=== PATIENT | male | born 1965 | race Caucasian/White ===

== ENCOUNTER 2019-09-24 09:35 | Inpatient (IN) ==
[2019-09-24] MEDS ORDERED: Aspirin 81 MG TAB.CHEW PO ONE (09:52)
[2019-09-24 10:15] LABS: Basophils % 0.2 %; Eosinophils # 0.2 K/mcL (0.0-0.6); Eosinophils % 1.1 %; Hematocrit 44.3 % (37.5-50.1); Hemoglobin 15.4 g/dL (12.9-16.9); Immature Granulocytes % 0.4 % (0-4); Lymphocytes # 1.2 K/mcL (0.6-4.6); Lymphocytes % 8.9 %; Mean Corpuscular HGB Conc 34.8 g/dL (31.6-35.5); Mean Corpuscular Hemoglobin 29.7 pg (28.0-33.3); Mean Corpuscular Volume 85.5 fL (83.0-100.0); Mean Platelet Volume 9.9 fL (9.4-12.4); Monocytes % 7.4 %; Platelet Count 280 K/mcL (140-400); Red Blood Count 5.18 M/mcL (4.19-5.50); Red Cell Distribution Width 13.2 % (11.5-14.5); White Blood Count 13.5 K/mcL (4.3-11.1)
[2019-09-24 10:20] LABS: INR 1.1; Prothrombin Time 12.2 Seconds (9.4-12.1)
[2019-09-24 10:36] LABS: Albumin 4.1 g/dL (3.5-5.7); Albumin/Globulin Ratio 1.5 (1.1-2.2); Bilirubin,Direct 0.2 mg/dL (0.0-0.2); Bilirubin,Indirect 0.7 mg/dL (0.0-1.0); Bilirubin,Total 0.9 mg/dL (0.3-1.0); Globulin 2.8 g/dL (2.4-3.5); Total Protein 6.9 g/dL (6.4-8.9)
[2019-09-24 10:44] LABS: Potassium 3.3 mEq/L (3.5-5.1); Troponin I 20.92 ng/mL (< 0.04)
[2019-09-24] MEDS ORDERED: *HR* Heparin 5,000 UNIT/ML VIAL IVP PRN ×3 (10:56→12:47)
[2019-09-24] MEDS ORDERED: *HR* Heparin 5,000 UNIT/ML VIAL IVP ONE ×2 (10:56→12:47)
[2019-09-24] MEDS ORDERED: Heparin 25,000 UNIT/250 ML D5W 25,000 UNIT/250 ML IV.SOLN IVC SCH (11:00)
[2019-09-24] MEDS ORDERED: Isovue-370 500 ML BOTTLE IVP ONE (11:20)
[2019-09-24 12:03] LABS: D-Dimer < 215 ng/mLFEU (0-500)
[2019-09-24] MEDS ORDERED: Perflutren Lipid Microsphere 1.3 ML in 0.9 % Sodium Chloride 8.7 ML IVP ONE (12:07)
[2019-09-24] MEDS ORDERED: Naloxone 0.4 MG/ML INJ IVP PRN (12:55)
[2019-09-24] MEDS: Heparin 25,000 UNIT/250 ML D5W 25,000 UNIT/250 ML IV.SOLN IVC SCH ×2 (13:47→18:00)
[2019-09-24] MEDS ORDERED: 0.9 % Sodium Chloride 1,000 ML IV ONE (13:49)
[2019-09-24] MEDS ORDERED: 0.9 % Sodium Chloride 2,000 ML ONE (14:29)
[2019-09-24] MEDS ORDERED: ISOVUE-370 200 ML INFUS..BTL ONE (14:30)
[2019-09-24] MEDS ORDERED: Heparin 1,000 UNITS/500 mL 500 ML ONE (14:30)
[2019-09-24] MEDS ORDERED: *HR* Heparin 10,000 UNIT/10 ML VIAL ONE ×2 (14:30→15:20)
[2019-09-24] MEDS ORDERED: Nitroglycerin 1,000 MCG/10 ML VIAL IV ONE (14:30)
[2019-09-24] MEDS ORDERED: 0.9 % Sodium Chloride 250 ML ONE (14:34)
[2019-09-24] MEDS ORDERED: *HR* Midazolam HCl 2 MG/2 ML VIAL ONE ×2 (14:39→15:17)
[2019-09-24] MEDS ORDERED: 0.9 % Sodium Chloride 250 ML IV ONE (14:39)
[2019-09-24] MEDS ORDERED: *HR* FentaNYL (PF) 100 MCG/2 ML VIAL ONE (14:39)
[2019-09-24] MEDS ORDERED: 0.9 % Sodium Chloride 250 ML IV SCH (14:45)
[2019-09-24] MEDS ORDERED: Verapamil 5 MG/2 ML VIAL ONE (14:47)
[2019-09-24] MEDS ORDERED: 0.9 % Sodium Chloride 1,000 ML IVC SCH (15:15)
[2019-09-24] MEDS: 0.9 % Sodium Chloride 1,000 ML IVC SCH (16:40)
[2019-09-24] MEDS: carvediloL 6.25 MG TABLET PO SCH (16:57)
[2019-09-24] MEDS ORDERED: Ondansetron 4 MG/2 ML VIAL IVP PRN (17:53)
[2019-09-24] MEDS: CeFAZolin Syr 3,000MG/30 ML 3,000 MG/30 ML SYRINGE IVPB ONE (18:49)
[2019-09-25] MEDS: 0.9 % Sodium Chloride 1,000 ML IVC SCH ×2 (01:00→15:27)
[2019-09-25 01:01] LABS: Basophils % 0.1 %; Eosinophils % 0.1 %; Hemoglobin 14.7 g/dL (12.9-16.9); Immature Granulocytes % 0.3 % (0-4); Immature Platelets 2.7 % (1.1-6.1); Lymphocytes # 1.6 K/mcL (0.6-4.6); Lymphocytes % 10.8 %; Mean Corpuscular HGB Conc 32.7 g/dL (31.6-35.5); Mean Corpuscular Hemoglobin 29.8 pg (28.0-33.3); Mean Corpuscular Volume 91.1 fL (83.0-100.0); Mean Platelet Volume 10.3 fL (9.4-12.4); Monocytes # 1.1 K/mcL (0.0-1.3); Monocytes % 7.3 %; Neutrophils # 11.7 K/mcL (1.6-8.9); Platelet Count 261 K/mcL (140-400); Red Blood Count 4.94 M/mcL (4.19-5.50); Red Cell Distribution Width 13.5 % (11.5-14.5); Segmented Neutrophils % 81.4 %; White Blood Count 14.4 K/mcL (4.3-11.1)
[2019-09-25 02:48] LABS: Calcium 8.8 mg/dL (8.6-10.3); Chol/HDL Ratio 2.8 (0-4.9); Potassium 3.6 mEq/L (3.5-5.1)
[2019-09-25 04:49] LABS: Bilirubin,Urine Negative (Negative); Blood,Urine Negative (Negative); Clarity,Urine Clear (Clear); Color,Urine Yellow (Yellow); Glucose,Urine (UA) Normal (Normal); Ketones,Urine Negative (Negative); Leukocyte Esterase,Urine Negative (Negative); Nitrite,Urine Negative (Negative); Protein,Urine 30 mg/dL (Neg-Trace); Specific Gravity,Urine 1.014 (1.010-1.025); Urobilinogen,Urine Normal (Normal)
[2019-09-25 04:56] LABS: Protein/Creatinine Ratio,Urine 0.66 mg/mg (0.00-0.20)
[2019-09-25 05:05] LABS: RBC,Urine 0-3 per hpf (0-3)
[2019-09-25 05:06] LABS: Bacteria,Urine None Seen per hpf (None-Few); Squamous Epithelial Cell,Urine None Seen per lpf (None-Few); WBC,Urine 0-3 per hpf (0-3)
[2019-09-25] MEDS ORDERED: Heparin 15,000 UNIT in 0.9 % Sodium Chloride 500 ML IV ONE (06:00)
[2019-09-25] MEDS ORDERED: Dextrose 50 % in Water (Vial) 30 ML, Sodium Bicarbonate 20 MEQ, Potassium Chloride 15 M... TH ONE (06:00)
[2019-09-25] MEDS ORDERED: Norepinephrine 4 MG in 0.9 % Sodium Chloride 250 ML IVC PRN (06:00)
[2019-09-25] MEDS ORDERED: Insulin Human Regular 100 UNIT in 0.9 % Sodium Chloride 100 ML IV PRN (06:00)
[2019-09-25] MEDS ORDERED: Dextrose 50 % in Water (Vial) 30 ML, Sodium Bicarbonate 20 MEQ, Lidocaine 1% 5 ML, Insu... TH ONE ×3 (06:00)
[2019-09-25] MEDS ORDERED: NiCARdipine 2.5 MG/10 ML Syringe IVPB ONE (07:33)
[2019-09-25] MEDS ORDERED: *HR* Rocuronium Bromide 50 MG/5 ML VIAL ONE ×2 (07:39→13:04)
[2019-09-25] MEDS ORDERED: *HR* PHENYLEPHRINE 1,000 MCG/10 ML SYRINGE IVP ONE ×3 (07:39→13:35)
[2019-09-25] MEDS ORDERED: Tranexamic Acid 1,000 MG/10 ML VIAL ONE ×2 (07:40→11:28)
[2019-09-25] MEDS ORDERED: Calcium Gluconate 1,000 MG/10 ML VIAL ONE (07:40)
[2019-09-25] MEDS ORDERED: Famotidine 20 MG/2 ML VIAL ONE (07:40)
[2019-09-25] MEDS ORDERED: *HR* Etomidate 20 MG/10 ML AMPUL IVP ONE (07:40)
[2019-09-25] MEDS ORDERED: Protamine Sulfate 250 MG/25 ML VIAL IVP ONE (07:40)
[2019-09-25] MEDS ORDERED: *HR* FentaNYL (PF) 1,000 MCG/20 ML VIAL ONE (07:45)
[2019-09-25] MEDS ORDERED: *HR* Midazolam HCl 5 MG/5 ML VIAL IVP ONE (07:45)
[2019-09-25] MEDS ORDERED: Verapamil 5 MG/2 ML VIAL ONE (07:53)
[2019-09-25] MEDS: carvediloL 6.25 MG TABLET PO SCH (08:03)
[2019-09-25] MEDS ORDERED: Mannitol 25% vial 12.5 GM/50 ML VIAL IVP ONE (08:44)
[2019-09-25] MEDS ORDERED: Tranexamic Acid 1,000 MG/10 ML VIAL IVP ONE (08:44)
[2019-09-25] MEDS ORDERED: Lidocaine 2% Syringe 100 MG/5 ML IV ONE (08:44)
[2019-09-25] MEDS ORDERED: *HR* Magnesium Sulfate 2 GM/50 ML PIGGYBACK IVPB ONE (08:44)
[2019-09-25] MEDS ORDERED: Albumin Human 25% 25 GM/100 ML IV.SOLN IV ONE (08:44)
[2019-09-25] MEDS ORDERED: *HR* Phenylephrine 10 MG/ML VIAL IVC ONE (08:44)
[2019-09-25] MEDS ORDERED: *HR* Heparin 10,000 UNIT/10 ML VIAL IV ONE (08:44)
[2019-09-25] MEDS ORDERED: Aspirin Enteric Coated 81 MG Tablet PO SCH (09:00)
[2019-09-25 10:27] LABS: ABG Base Excess -1 mEq/L (-2 to 3); ABG Chloride 108 mEq/L (98-107); ABG Glucose 106 mg/dL (60-95); ABG HCO3 26 mEq/L (21-27); ABG Ionized Calcium 1.14 mmol/L (1.15-1.35); ABG Oxygen Saturation 93 % (95-98); ABG PCO2 52 mmHg (35-45); ABG PH 7.31 pH Units (7.32-7.45); ABG PO2 74 mmHg (85-104); ABG TCO2 28 mEq/L (20-26)
[2019-09-25] MEDS: CeFAZolin Syr 3,000MG/30 ML 3,000 MG/30 ML SYRINGE IVPB ONE (10:40)
[2019-09-25 11:31] LABS: ABG Base Excess -2 mEq/L (-2 to 3); ABG Chloride 109 mEq/L (98-107); ABG Glucose 113 mg/dL (60-95); ABG HCO3 24 mEq/L (21-27); ABG Ionized Calcium 1.07 mmol/L (1.15-1.35); ABG Oxygen Saturation 99 % (95-98); ABG PCO2 45 mmHg (35-45); ABG PH 7.34 pH Units (7.32-7.45); ABG PO2 172 mmHg (85-104); ABG TCO2 26 mEq/L (20-26)
[2019-09-25 12:02] LABS: ABG Base Excess 2 mEq/L (-2 to 3); ABG Chloride 102 mEq/L (98-107); ABG Glucose 181 mg/dL (60-95); ABG HCO3 27 mEq/L (21-27); ABG Ionized Calcium 0.94 mmol/L (1.15-1.35); ABG Oxygen Saturation 100 % (95-98); ABG PCO2 45 mmHg (35-45); ABG PH 7.39 pH Units (7.32-7.45); ABG PO2 559 mmHg (85-104); ABG TCO2 29 mEq/L (20-26)
[2019-09-25 12:42] LABS: ABG Base Excess 3 mEq/L (-2 to 3); ABG Chloride 103 mEq/L (98-107); ABG Glucose 164 mg/dL (60-95); ABG HCO3 28 mEq/L (21-27); ABG Oxygen Saturation 100 % (95-98); ABG PCO2 45 mmHg (35-45); ABG PO2 574 mmHg (85-104); ABG TCO2 29 mEq/L (20-26)
[2019-09-25 12:53] LABS: ABG Base Excess 2 mEq/L (-2 to 3); ABG Chloride 102 mEq/L (98-107); ABG Glucose 161 mg/dL (60-95); ABG HCO3 26 mEq/L (21-27); ABG Ionized Calcium 0.99 mmol/L (1.15-1.35); ABG Oxygen Saturation 100 % (95-98); ABG PCO2 41 mmHg (35-45); ABG PH 7.42 pH Units (7.32-7.45); ABG PO2 492 mmHg (85-104); ABG TCO2 28 mEq/L (20-26)
[2019-09-25 13:30] LABS: ABG Base Excess 0 mEq/L (-2 to 3); ABG Chloride 101 mEq/L (98-107); ABG Glucose 86 mg/dL (60-95); ABG HCO3 26 mEq/L (21-27); ABG Ionized Calcium 1.34 mmol/L (1.15-1.35); ABG Oxygen Saturation 100 % (95-98); ABG PCO2 48 mmHg (35-45); ABG PH 7.35 pH Units (7.32-7.45); ABG PO2 320 mmHg (85-104); ABG TCO2 28 mEq/L (20-26)
[2019-09-25] MEDS ORDERED: *HR* Dextrose 50 % in Water (Syg) 50 ML SYRINGE IVP PRN (13:58)
[2019-09-25] MEDS ORDERED: Potassium Chloride 40 MEQ/200 ML BAG IVPB PRN (13:58)
[2019-09-25] MEDS ORDERED: Insulin Regular, Human 100 UNIT/ML IV PRN (13:58)
[2019-09-25] MEDS ORDERED: Acetaminophen 325 MG TABLET PO PRN (13:58)
[2019-09-25] MEDS ORDERED: *HR* Promethazine 25 MG/ML VIAL IVP PRN (13:58)
[2019-09-25] MEDS: Norepinephrine 4 MG in 0.9 % Sodium Chloride 250 ML IVC SCH (14:05)
[2019-09-25 14:29] LABS: ABG Base Excess 2 mEq/L (-2 to 3); ABG HCO3 26 mEq/L (21-27); ABG Oxygen Saturation 99 % (95-98); ABG PCO2 36 mmHg (35-45); ABG PH 7.47 pH Units (7.32-7.45); ABG PO2 150 mmHg (85-104); ABG TCO2 27 mEq/L (20-26); Blood Gas Modality ASSIST CONTROL; Blood Gas VT 830 cc
[2019-09-25 14:43] LABS: Basophils % 0.2 %; Eosinophils # 0.2 K/mcL (0.0-0.6); Eosinophils % 0.7 %; Immature Granulocytes % 1.1 % (0-4); Lymphocytes # 1.9 K/mcL (0.6-4.6); Mean Corpuscular Hemoglobin 30.1 pg (28.0-33.3); Mean Corpuscular Volume 85.9 fL (83.0-100.0); Mean Platelet Volume 10.2 fL (9.4-12.4); Monocytes # 1.3 K/mcL (0.0-1.3); Monocytes % 6.2 %; Neutrophils # 17.3 K/mcL (1.6-8.9); Red Blood Count 3.69 M/mcL (4.19-5.50); Red Cell Distribution Width 13.5 % (11.5-14.5); Segmented Neutrophils % 82.8 %
[2019-09-25 14:51] LABS: INR 1.2; Prothrombin Time 14.1 Seconds (9.4-12.1)
[2019-09-25 14:53] LABS: Activated Partial Thrombo Time 31.3 Seconds (26.0-36.0); Hematocrit 31.7 % (37.5-50.1); Hemoglobin 11.1 g/dL (12.9-16.9); Platelet Count 201 K/mcL (140-400); White Blood Count 20.9 K/mcL (4.3-11.1)
[2019-09-25 15:06] LABS: Calcium 8.6 mg/dL (8.6-10.3); Magnesium 2.8 mg/dL (1.6-2.6); Potassium 3.8 mEq/L (3.5-5.1)
[2019-09-25] MEDS: ceFAZolin 3,000 MG in 0.9 % Sodium Chloride 100 ML IVPB SCH (15:26)
[2019-09-25 18:18] LABS: ABG Base Excess -1 mEq/L (-2 to 3); ABG HCO3 22 mEq/L (21-27); ABG Oxygen Saturation 99 % (95-98); ABG PCO2 33 mmHg (35-45); ABG PH 7.44 pH Units (7.32-7.45); ABG PO2 109 mmHg (85-104); ABG TCO2 23 mEq/L (20-26); Blood Gas Modality ASSIST CONTROL; Blood Gas VT 900 cc
[2019-09-25] MEDS: *HR* FentaNYL (PF) 100 MCG/2 ML VIAL IVP PRN ×2 (18:32→21:26)
[2019-09-25] MEDS: *HR* OxyCODONE/APAP 5/325 TABLET PO PRN (20:22)
[2019-09-25] MEDS: Chlorhexidine Rinse 15 ML MOUTHWASH MM SCH (20:27)
[2019-09-25 21:13] LABS: ABG Base Excess -2 mEq/L (-2 to 3); ABG HCO3 24 mEq/L (21-27); ABG Oxygen Saturation 94 % (95-98); ABG PCO2 48 mmHg (35-45); ABG PH 7.31 pH Units (7.32-7.45); ABG PO2 80 mmHg (85-104); ABG TCO2 26 mEq/L (20-26); Blood Gas Modality CPAP/PS; Blood Gas Pressure Support 5 cm H2O
[2019-09-25 23:19] LABS: ABG Base Excess -1 mEq/L (-2 to 3); ABG HCO3 28 mEq/L (21-27); ABG Oxygen Saturation 91 % (95-98); ABG PCO2 62 mmHg (35-45); ABG PH 7.25 pH Units (7.32-7.45); ABG PO2 72 mmHg (85-104); ABG TCO2 29 mEq/L (20-26)
[2019-09-26] MEDS: ceFAZolin 3,000 MG in 0.9 % Sodium Chloride 100 ML IVPB SCH (00:19)
[2019-09-26] MEDS: niCARdipine 20 MG in 0.9 % Sodium Chloride 192 ML IVC SCH ×2 (01:02→14:12)
[2019-09-26 03:48] LABS: Calcium 8.2 mg/dL (8.6-10.3); Potassium 4.3 mEq/L (3.5-5.1)
[2019-09-26 03:53] LABS: Basophils % 0.1 %; Hematocrit 33.5 % (37.5-50.1); Immature Granulocytes % 0.6 % (0-4); Lymphocytes # 0.7 K/mcL (0.6-4.6); Lymphocytes % 4.7 %; Mean Corpuscular HGB Conc 32.8 g/dL (31.6-35.5); Mean Corpuscular Hemoglobin 29.5 pg (28.0-33.3); Mean Corpuscular Volume 89.8 fL (83.0-100.0); Mean Platelet Volume 10.7 fL (9.4-12.4); Monocytes % 6.3 %; Neutrophils # 13.6 K/mcL (1.6-8.9); Platelet Count 189 K/mcL (140-400); Red Blood Count 3.73 M/mcL (4.19-5.50); Red Cell Distribution Width 13.9 % (11.5-14.5); Segmented Neutrophils % 88.3 %; White Blood Count 15.3 K/mcL (4.3-11.1)
[2019-09-26] MEDS: *HR* OxyCODONE/APAP 5/325 TABLET PO PRN (04:16)
[2019-09-26] MEDS: 0.9 % Sodium Chloride 1,000 ML IVC SCH (04:17)
[2019-09-26] MEDS: Aspirin Enteric Coated 81 MG Tablet PO SCH (07:56)
[2019-09-26] MEDS: Chlorhexidine Rinse 15 ML MOUTHWASH MM SCH ×2 (07:57→20:14)
[2019-09-26] MEDS: Pantoprazole 40 MG VIAL IVP SCH (07:57)
[2019-09-26 08:07] LABS: Estimated Average Glucose 128 mg/dl
[2019-09-26] MEDS: Insulin Human Regular 100 UNIT in 0.9 % Sodium Chloride 100 ML IVC SCH (14:11)
[2019-09-26] MEDS: Norepinephrine 4 MG in 0.9 % Sodium Chloride 250 ML IVC SCH (14:12)
[2019-09-26] MEDS: Insulin LISPRO 300 UNITS/3 ML VIAL SQ SCH ×2 (20:11→20:15)
[2019-09-27] MEDS: *HR* OxyCODONE/APAP 5/325 TABLET PO PRN ×2 (02:15→17:02)
[2019-09-27] MEDS ORDERED: Amiodarone Premix 150 MG/100 ML BAG IVPB ONE (03:51)
[2019-09-27] MEDS ORDERED: Amiodarone Premix 360 MG/200 ML BAG IVC ONE (04:00)
[2019-09-27] MEDS: Amiodarone Premix 360 MG/200 ML BAG IVC SCH ×3 (04:21→22:37)
[2019-09-27 05:24] LABS: Basophils % 0.1 %; Eosinophils % 0.2 %; Hematocrit 33.3 % (37.5-50.1); Hemoglobin 10.5 g/dL (12.9-16.9); Immature Granulocytes % 0.5 % (0-4); Lymphocytes # 1.2 K/mcL (0.6-4.6); Lymphocytes % 7.8 %; Mean Corpuscular HGB Conc 31.5 g/dL (31.6-35.5); Mean Corpuscular Volume 95.1 fL (83.0-100.0); Mean Platelet Volume 11.2 fL (9.4-12.4); Monocytes # 0.9 K/mcL (0.0-1.3); Monocytes % 6.2 %; Neutrophils # 12.8 K/mcL (1.6-8.9); Platelet Count 189 K/mcL (140-400); Red Cell Distribution Width 13.9 % (11.5-14.5); Segmented Neutrophils % 85.2 %; White Blood Count 15.1 K/mcL (4.3-11.1)
[2019-09-27 05:45] LABS: Calcium 8.4 mg/dL (8.6-10.3)
[2019-09-27] MEDS: Insulin LISPRO 300 UNITS/3 ML VIAL SQ SCH ×4 (08:05→20:01)
[2019-09-27] MEDS: Chlorhexidine Rinse 15 ML MOUTHWASH MM SCH ×2 (08:09→20:00)
[2019-09-27] MEDS: Pantoprazole 40 MG VIAL IVP SCH (08:09)
[2019-09-27] MEDS: Aspirin Enteric Coated 81 MG Tablet PO SCH (08:09)
[2019-09-27] MEDS: niCARdipine 20 MG in 0.9 % Sodium Chloride 192 ML IVC SCH (14:40)
[2019-09-27] MEDS: Norepinephrine 4 MG in 0.9 % Sodium Chloride 250 ML IVC SCH (14:40)
[2019-09-28 04:00] LABS: Basophils % 0.2 %; Eosinophils # 0.2 K/mcL (0.0-0.6); Eosinophils % 1.1 %; Hematocrit 32.4 % (37.5-50.1); Hemoglobin 10.3 g/dL (12.9-16.9); Immature Granulocytes % 0.4 % (0-4); Lymphocytes # 1.2 K/mcL (0.6-4.6); Lymphocytes % 8.6 %; Mean Corpuscular HGB Conc 31.8 g/dL (31.6-35.5); Mean Corpuscular Hemoglobin 29.7 pg (28.0-33.3); Mean Corpuscular Volume 93.4 fL (83.0-100.0); Mean Platelet Volume 11.2 fL (9.4-12.4); Monocytes # 1.1 K/mcL (0.0-1.3); Monocytes % 7.9 %; Neutrophils # 11.7 K/mcL (1.6-8.9); Nucleated Red Blood Cells 0.4 /100 WBC (0); Platelet Count 223 K/mcL (140-400); Red Blood Count 3.47 M/mcL (4.19-5.50); Red Cell Distribution Width 13.8 % (11.5-14.5); Segmented Neutrophils % 81.8 %; White Blood Count 14.2 K/mcL (4.3-11.1)
[2019-09-28 04:11] LABS: Calcium 8.4 mg/dL (8.6-10.3); Potassium 3.8 mEq/L (3.5-5.1)
[2019-09-28] MEDS: *HR* OxyCODONE/APAP 5/325 TABLET PO PRN (05:18)
[2019-09-28] MEDS: Insulin LISPRO 300 UNITS/3 ML VIAL SQ SCH ×4 (08:25→21:06)
[2019-09-28] MEDS: Aspirin Enteric Coated 81 MG Tablet PO SCH (08:29)
[2019-09-28] MEDS: Chlorhexidine Rinse 15 ML MOUTHWASH MM SCH ×2 (08:29→20:38)
[2019-09-28] MEDS: Pantoprazole 40 MG VIAL IVP SCH (08:29)
[2019-09-28] MEDS ORDERED: *HR* Promethazine 25 MG/ML VIAL IVP PRN (09:27)
[2019-09-28] MEDS ORDERED: Naloxone 0.4 MG/ML INJ IVP PRN (09:27)
[2019-09-28] MEDS ORDERED: Ondansetron 4 MG/2 ML VIAL IVP PRN (09:27)
[2019-09-28] MEDS ORDERED: Acetaminophen 325 MG TABLET PO PRN (09:27)
[2019-09-28] MEDS ORDERED: *HR* OxyCODONE Immed Rel 5 MG TABLET PO PRN (09:27)
[2019-09-28] MEDS ORDERED: *HR* Dextrose 50 % in Water (Syg) 50 ML SYRINGE IVP PRN (09:27)
[2019-09-28] MEDS: Amiodarone Premix 360 MG/200 ML BAG IVC SCH ×2 (10:52→22:31)
[2019-09-28] MEDS: *HR* OxyCODONE Immed Rel 5 MG TABLET PO PRN (13:08)
[2019-09-28] MEDS: 0.9 % Sodium Chloride 1,000 ML IVC SCH (15:14)
[2019-09-28] MEDS: *HR* Heparin 5,000 UNIT/ML VIAL SQ SCH (17:17)
[2019-09-29] MEDS: 0.9 % Sodium Chloride 1,000 ML IVC SCH (03:46)
[2019-09-29 05:17] LABS: Basophils % 0.3 %; Eosinophils # 0.2 K/mcL (0.0-0.6); Eosinophils % 1.5 %; Hematocrit 33.9 % (37.5-50.1); Hemoglobin 11.2 g/dL (12.9-16.9); Immature Granulocytes % 0.5 % (0-4); Lymphocytes # 0.9 K/mcL (0.6-4.6); Lymphocytes % 8.1 %; Mean Corpuscular Hemoglobin 29.9 pg (28.0-33.3); Mean Corpuscular Volume 90.6 fL (83.0-100.0); Mean Platelet Volume 10.8 fL (9.4-12.4); Monocytes % 8.8 %; Neutrophils # 8.8 K/mcL (1.6-8.9); Platelet Count 254 K/mcL (140-400); Red Blood Count 3.74 M/mcL (4.19-5.50); Red Cell Distribution Width 13.8 % (11.5-14.5); Segmented Neutrophils % 80.8 %; White Blood Count 10.9 K/mcL (4.3-11.1)
[2019-09-29 05:40] LABS: Calcium 8.3 mg/dL (8.6-10.3); Potassium 3.8 mEq/L (3.5-5.1)
[2019-09-29] MEDS: *HR* Heparin 5,000 UNIT/ML VIAL SQ SCH ×2 (06:23→16:56)
[2019-09-29] MEDS: Chlorhexidine Rinse 15 ML MOUTHWASH MM SCH ×2 (08:42→21:39)
[2019-09-29] MEDS: Pantoprazole 40 MG VIAL IVP SCH (08:42)
[2019-09-29] MEDS: *HR* OxyCODONE Immed Rel 5 MG TABLET PO PRN ×2 (08:42→18:52)
[2019-09-29] MEDS: Insulin LISPRO 300 UNITS/3 ML VIAL SQ SCH ×4 (08:43→21:35)
[2019-09-29] MEDS: Aspirin Enteric Coated 81 MG Tablet PO SCH (08:43)
[2019-09-29] MEDS: *HR* Amiodarone 200 MG TABLET PO SCH ×2 (10:13→21:39)
[2019-09-30] MEDS: *HR* OxyCODONE Immed Rel 5 MG TABLET PO PRN ×3 (03:54→17:04)
[2019-09-30 04:37] LABS: Calcium 8.8 mg/dL (8.6-10.3); Potassium 3.9 mEq/L (3.5-5.1)
[2019-09-30 04:38] LABS: Basophils % 0.4 %; Eosinophils # 0.3 K/mcL (0.0-0.6); Eosinophils % 2.5 %; Hematocrit 36.8 % (37.5-50.1); Hemoglobin 12.3 g/dL (12.9-16.9); Immature Granulocytes % 1.1 % (0-4); Lymphocytes # 1.2 K/mcL (0.6-4.6); Lymphocytes % 10.9 %; Mean Corpuscular HGB Conc 33.4 g/dL (31.6-35.5); Mean Corpuscular Volume 89.8 fL (83.0-100.0); Mean Platelet Volume 10.7 fL (9.4-12.4); Neutrophils # 8.3 K/mcL (1.6-8.9); Platelet Count 328 K/mcL (140-400); Segmented Neutrophils % 76.1 %; White Blood Count 10.9 K/mcL (4.3-11.1)
[2019-09-30 05:01] LABS: Platelet Estimate Normal (Normal)
[2019-09-30] MEDS: *HR* Heparin 5,000 UNIT/ML VIAL SQ SCH ×2 (06:18→17:02)
[2019-09-30] MEDS: Aspirin Enteric Coated 81 MG Tablet PO SCH (08:16)
[2019-09-30] MEDS: Pantoprazole 40 MG VIAL IVP SCH (08:16)
[2019-09-30] MEDS: Chlorhexidine Rinse 15 ML MOUTHWASH MM SCH ×2 (08:16→20:47)
[2019-09-30] MEDS: *HR* Amiodarone 200 MG TABLET PO SCH ×2 (08:16→20:47)
[2019-09-30] MEDS: Insulin LISPRO 300 UNITS/3 ML VIAL SQ SCH ×4 (08:17→20:46)
[2019-09-30] MEDS: Lisinopril-HCTZ 20-12.5mg TABLET PO SCH (11:34)
[2019-10-01 03:34] LABS: Basophils # 0.1 K/mcL (0.0-0.2); Basophils % 0.5 %; Eosinophils # 0.4 K/mcL (0.0-0.6); Eosinophils % 3.6 %; Hematocrit 37.9 % (37.5-50.1); Lymphocytes # 1.3 K/mcL (0.6-4.6); Lymphocytes % 12.5 %; Mean Corpuscular HGB Conc 31.7 g/dL (31.6-35.5); Mean Corpuscular Hemoglobin 29.6 pg (28.0-33.3); Mean Corpuscular Volume 93.6 fL (83.0-100.0); Mean Platelet Volume 10.6 fL (9.4-12.4); Monocytes % 9.5 %; Neutrophils # 7.7 K/mcL (1.6-8.9); Platelet Count 340 K/mcL (140-400); Red Blood Count 4.05 M/mcL (4.19-5.50); Red Cell Distribution Width 13.8 % (11.5-14.5); Segmented Neutrophils % 72.9 %; White Blood Count 10.5 K/mcL (4.3-11.1)
[2019-10-01 04:02] LABS: Calcium 9.1 mg/dL (8.6-10.3); Potassium 3.9 mEq/L (3.5-5.1)
[2019-10-01] MEDS: *HR* Heparin 5,000 UNIT/ML VIAL SQ SCH ×2 (05:01→16:17)
[2019-10-01] MEDS: Lisinopril-HCTZ 20-12.5mg TABLET PO SCH (08:22)
[2019-10-01] MEDS: Chlorhexidine Rinse 15 ML MOUTHWASH MM SCH ×2 (08:22→20:05)
[2019-10-01] MEDS: Aspirin Enteric Coated 81 MG Tablet PO SCH (08:22)
[2019-10-01] MEDS: *HR* Amiodarone 200 MG TABLET PO SCH ×2 (08:22→20:05)
[2019-10-01] MEDS: Pantoprazole 40 MG VIAL IVP SCH (08:22)
[2019-10-01] MEDS: Insulin LISPRO 300 UNITS/3 ML VIAL SQ SCH ×4 (08:23→20:05)
[2019-10-01] MEDS: *HR* OxyCODONE Immed Rel 5 MG TABLET PO PRN (23:28)
[2019-10-02] MEDS: *HR* Heparin 5,000 UNIT/ML VIAL SQ SCH ×2 (05:22→17:04)
[2019-10-02] MEDS: Insulin LISPRO 300 UNITS/3 ML VIAL SQ SCH ×4 (08:23→20:16)
[2019-10-02] MEDS: Pantoprazole 40 MG VIAL IVP SCH (08:24)
[2019-10-02] MEDS: *HR* Amiodarone 200 MG TABLET PO SCH ×2 (08:24→20:21)
[2019-10-02] MEDS: Chlorhexidine Rinse 15 ML MOUTHWASH MM SCH ×2 (08:24→20:20)
[2019-10-02] MEDS: Aspirin Enteric Coated 81 MG Tablet PO SCH (08:24)
[2019-10-02] MEDS: Lisinopril-HCTZ 20-12.5mg TABLET PO SCH (08:24)
[2019-10-03] MEDS: *HR* Heparin 5,000 UNIT/ML VIAL SQ SCH (05:02)
[2019-10-03 07:36] VITALS: BP 149/93
[2019-10-03] MEDS: Pantoprazole 40 MG VIAL IVP SCH (07:48)
[2019-10-03] MEDS: Lisinopril-HCTZ 20-12.5mg TABLET PO SCH (07:48)
[2019-10-03] MEDS: Chlorhexidine Rinse 15 ML MOUTHWASH MM SCH (07:48)
[2019-10-03] MEDS: *HR* Amiodarone 200 MG TABLET PO SCH (07:48)
[2019-10-03] MEDS: Aspirin Enteric Coated 81 MG Tablet PO SCH (07:48)
[2019-10-03] MEDS: Insulin LISPRO 300 UNITS/3 ML VIAL SQ SCH (07:52)
== END 2019-10-03 09:43 | disposition home or self-care (01) | DRG 234 ==
LOC: 2NENU 09:35 → EMEROOARM 09:35 → 2NENU 14:10 → ICNU 15:45 → 2NNU 09-28 20:22
PROVIDERS: ADMIT Internal Medicine; ATTEND Internal Medicine

== ENCOUNTER 2020-06-12 15:47 | Inpatient (IN) ==
[2020-06-12 17:15] LABS: Basophils % 0.4 %; Eosinophils # 0.8 K/mcL (0.0-0.6); Eosinophils % 7.7 %; Hematocrit 48.7 % (37.5-50.1); Hemoglobin 15.8 g/dL (12.9-16.9); Immature Granulocytes % 0.3 % (0-4); Lymphocytes # 1.7 K/mcL (0.6-4.6); Lymphocytes % 15.9 %; Mean Corpuscular HGB Conc 32.4 g/dL (31.6-35.5); Mean Corpuscular Hemoglobin 29.8 pg (28.0-33.3); Mean Corpuscular Volume 91.9 fL (83.0-100.0); Mean Platelet Volume 9.9 fL (9.4-12.4); Monocytes # 0.7 K/mcL (0.0-1.3); Monocytes % 6.2 %; Neutrophils # 7.5 K/mcL (1.6-8.9); Platelet Count 265 K/mcL (140-400); Red Cell Distribution Width 13.6 % (11.5-14.5); Segmented Neutrophils % 69.5 %; White Blood Count 10.7 K/mcL (4.3-11.1)
[2020-06-12 17:43] LABS: BUN/Creatinine Ratio 15 (6-26); Blood Urea Nitrogen 30 mg/dL (6-20); Calcium 9.9 mg/dL (8.6-10.3); Carbon Dioxide 31 mEq/L (23-29); Chloride 104 mEq/L (98-107); Glucose 129 mg/dL (70-105); Osmolality,Calculated 300 (280-300); Phosphorous 2.3 mg/dL (2.7-4.5); Potassium 4.1 mEq/L (3.5-5.1); Sodium 141 mEq/L (136-145); Troponin I < 0.03 ng/mL (< 0.04); eGFR For African Americans 43 (> 60); eGFR For Non-African Americans 36 (> 60)
[2020-06-12] MEDS ORDERED: *HR* Promethazine 25 MG/ML VIAL IVP PRN (18:09)
[2020-06-12] MEDS ORDERED: Acetaminophen 325 MG TABLET PO PRN (18:09)
[2020-06-12] MEDS ORDERED: Aspirin 325 MG TABLET PO ONE (18:15)
[2020-06-13 01:19] LABS: Calcium 9.5 mg/dL (8.6-10.3); Magnesium 1.9 mg/dL (1.6-2.6); Phosphorous 3.2 mg/dL (2.7-4.5); Potassium 3.6 mEq/L (3.5-5.1)
[2020-06-13] MEDS ORDERED: hydroCHLOROthiazide 25 MG TABLET PO SCH (09:00)
[2020-06-13] MEDS ORDERED: hydroCHLOROthiazide 25 MG TABLET PO ONE (11:45)
[2020-06-13] MEDS: lisinopriL 20 MG TABLET PO SCH (12:54)
[2020-06-13] MEDS: amLODIPine 5 MG TABLET PO SCH (12:55)
[2020-06-13] MEDS: Aspirin Enteric Coated 81 MG Tablet PO SCH (12:55)
[2020-06-13] MEDS: *HR* Heparin 5,000 UNIT/ML VIAL SQ SCH (18:23)
[2020-06-14 01:56] LABS: Calcium 9.7 mg/dL (8.6-10.3); Potassium 3.5 mEq/L (3.5-5.1)
[2020-06-14] MEDS: *HR* Heparin 5,000 UNIT/ML VIAL SQ SCH ×2 (05:29→18:18)
[2020-06-14] MEDS: Aspirin Enteric Coated 81 MG Tablet PO SCH (09:12)
[2020-06-14] MEDS: hydroCHLOROthiazide 25 MG TABLET PO SCH (09:12)
[2020-06-14] MEDS: lisinopriL 20 MG TABLET PO SCH (09:12)
[2020-06-14] MEDS: amLODIPine 5 MG TABLET PO SCH (09:12)
[2020-06-14] MEDS ORDERED: *HR* FentaNYL (PF) 100 MCG/2 ML VIAL ONE (12:41)
[2020-06-14] MEDS ORDERED: 0.9 % Sodium Chloride 1,000 ML ONE (12:42)
[2020-06-14] MEDS ORDERED: *HR* Midazolam HCl 2 MG/2 ML VIAL ONE (12:42)
[2020-06-14] MEDS ORDERED: 0.9 % Sodium Chloride 500 ML ONE (12:43)
[2020-06-14] MEDS ORDERED: *HR* OxyCODONE Immed Rel 5 MG TABLET PO PRN (14:03)
[2020-06-14] MEDS: CeFAZolin 2 GM/120 ML BAG IVPB SCH (22:31)
[2020-06-15 01:40] LABS: Hematocrit 49.5 % (37.5-50.1); Hemoglobin 15.8 g/dL (12.9-16.9); Mean Corpuscular HGB Conc 31.9 g/dL (31.6-35.5); Mean Corpuscular Hemoglobin 29.8 pg (28.0-33.3); Mean Corpuscular Volume 93.4 fL (83.0-100.0); Mean Platelet Volume 10.2 fL (9.4-12.4); Platelet Count 237 K/mcL (140-400); Red Cell Distribution Width 13.9 % (11.5-14.5); White Blood Count 10.7 K/mcL (4.3-11.1)
[2020-06-15 01:59] LABS: Calcium 9.3 mg/dL (8.6-10.3); Potassium 3.5 mEq/L (3.5-5.1)
[2020-06-15] MEDS: CeFAZolin 2 GM/120 ML BAG IVPB SCH (06:21)
[2020-06-15] MEDS: *HR* Heparin 5,000 UNIT/ML VIAL SQ SCH (06:22)
[2020-06-15] MEDS: Aspirin Enteric Coated 81 MG Tablet PO SCH (08:53)
[2020-06-15] MEDS: hydroCHLOROthiazide 25 MG TABLET PO SCH (08:53)
[2020-06-15] MEDS: lisinopriL 20 MG TABLET PO SCH (08:53)
[2020-06-15] MEDS: amLODIPine 5 MG TABLET PO SCH (08:53)
[2020-06-15 11:06] VITALS: BP 142/95
== END 2020-06-15 12:25 | disposition home or self-care (01) | DRG 243 ==
LOC: EMEROOARM 15:47 → 3BNU 15:47
PROVIDERS: ADMIT Internal Medicine; ATTEND Internal Medicine

== ENCOUNTER 2021-08-17 15:26 | Inpatient (IN) ==
[2021-08-17] MEDS ORDERED: Ipratropium/Albuterol Neb 3 ML ONE (15:29)
[2021-08-17] MEDS ORDERED: Ipratropium/Albuterol Neb 3 ML IH ONE (15:33)
[2021-08-17] MEDS ORDERED: methylPREDNISolone 125 MG/2 ML VIAL IVP ONE (15:33)
[2021-08-17 15:49] LABS: Basophils % 0.2 %; Hemoglobin 16.7 g/dL (12.9-16.9); Lymphocytes # 1.3 K/mcL (0.6-4.6); Lymphocytes % 7.6 %; Mean Corpuscular HGB Conc 32.7 g/dL (31.6-35.5); Mean Corpuscular Hemoglobin 28.5 pg (28.0-33.3); Mean Corpuscular Volume 87.2 fL (83.0-100.0); Mean Platelet Volume 10.8 fL (9.4-12.4); Monocytes # 0.9 K/mcL (0.0-1.3); Monocytes % 5.5 %; Neutrophils # 14.7 K/mcL (1.6-8.9); Platelet Count 367 K/mcL (140-400); Red Blood Count 5.85 M/mcL (4.19-5.50); Red Cell Distribution Width 14.3 % (11.5-14.5); Segmented Neutrophils % 85.7 %; White Blood Count 17.2 K/mcL (4.3-11.1)
[2021-08-17 15:57] LABS: INR 1.3; Prothrombin Time 14.8 Seconds (9.4-12.1)
[2021-08-17 15:59] LABS: Activated Partial Thrombo Time 29.3 Seconds (26.0-36.0)
[2021-08-17 16:05] LABS: ABG Base Excess -9 mEq/L (-2 to 3); ABG HCO3 13 mEq/L (21-27); ABG Oxygen Saturation 85 % (95-98); ABG PCO2 22 mmHg (35-45); ABG PH 7.38 pH Units (7.32-7.45); ABG PO2 49 mmHg (85-104); ABG TCO2 14 mEq/L (20-26)
[2021-08-17 16:18] LABS: Alanine Aminotransferase 69 Units/L (7-52); Albumin 3.7 g/dL (3.5-5.7); Alkaline Phosphatase 63 Units/L (34-104); Aspartate Amino Transferase 99 Units/L (13-39); BUN/Creatinine Ratio 15 (6-26); Bilirubin,Direct 0.5 mg/dL (0.0-0.2); Bilirubin,Indirect 0.5 mg/dL (0.0-1.0); Blood Urea Nitrogen 65 mg/dL (6-20); Calcium 8.8 mg/dL (8.6-10.3); Carbon Dioxide 17 mEq/L (23-29); Chloride 97 mEq/L (98-107); Globulin 3.8 g/dL (2.4-3.5); Glucose 158 mg/dL (70-105); Osmolality,Calculated 302 (280-300); Potassium 3.3 mEq/L (3.5-5.1); Sodium 135 mEq/L (136-145); Total Protein 7.5 g/dL (6.4-8.9); Troponin I 1.92 ng/mL (< 0.04); eGFR For African Americans 17 (> 60); eGFR For Non-African Americans 14 (> 60)
[2021-08-17] MEDS ORDERED: *HR* Heparin 5,000 UNIT/ML VIAL IVP PRN ×2 (16:23)
[2021-08-17] MEDS ORDERED: *HR* Heparin 5,000 UNIT/ML VIAL IVP ONE (16:23)
[2021-08-17] MEDS ORDERED: 0.9 % Sodium Chloride 1,000 ML IVC ONE ×2 (16:24→16:52)
[2021-08-17] MEDS ORDERED: Azithromycin 500 MG in 0.9 % Sodium Chloride 250 ML IVPB ONE (16:27)
[2021-08-17] MEDS ORDERED: Heparin 25,000UNIT/250ML 1/2NS 25,000 UNIT/250 ML IV.SOLN IVC SCH (16:30)
[2021-08-17 17:22] LABS: Heparin anti-factor XA UFH < 0.04 IU/mL (0.30-0.70)
[2021-08-17] MEDS ORDERED: Naloxone 0.4 MG/ML INJ IVP PRN (17:27)
[2021-08-17] MEDS ORDERED: Melatonin 3 MG TABLET PO PRN (17:27)
[2021-08-17] MEDS ORDERED: Acetaminophen 325 MG TABLET PO PRN (17:27)
[2021-08-17] MEDS ORDERED: *HR* Promethazine 25 MG/ML VIAL IM PRN (17:27)
[2021-08-17] MEDS ORDERED: Saliva Stimulant 44.3ml BOTTLE PO PRN (17:34)
[2021-08-17] MEDS ORDERED: Perflutren Lipid Microsphere 1.3 ML in 0.9 % Sodium Chloride 8.7 ML IVP PRN (18:09)
[2021-08-17 18:14] LABS: ABG Base Excess -10 mEq/L (-2 to 3); ABG HCO3 14 mEq/L (21-27); ABG Oxygen Saturation 88 % (95-98); ABG PCO2 26 mmHg (35-45); ABG PH 7.34 pH Units (7.32-7.45); ABG PO2 57 mmHg (85-104); ABG TCO2 15 mEq/L (20-26)
[2021-08-17 18:47] LABS: D-Dimer 1085 ng/mLFEU (0-500)
[2021-08-17] MEDS ORDERED: cefTRIAXone 1,000 MG in Water for inj. (sterile) 10 ML IVP SCH (19:00)
[2021-08-17] MEDS: Ipratropium 1 PUFF INHALER IH SCH (20:42)
[2021-08-17] MEDS: Norepinephrine 4 MG/254 ML IV.SOLN IVC SCH (21:03)
[2021-08-17 21:07] LABS: C-Reactive Protein 267 mg/L (Less than 10); Lactate Dehydrogenase 661 Units/L (140-271)
[2021-08-17] MEDS: Albumin 25% 25gram/100mL 25 GM/100 ML IV.SOLN IVC SCH (21:16)
[2021-08-17] MEDS: Midazolam HCl 50 MG/100 ML IV.SOLN IVC SCH (21:33)
[2021-08-17 21:39] LABS: Ferritin > 1500 ng/mL (20-250)
[2021-08-17 22:17] LABS: ABG Base Excess -5 mEq/L (-2 to 3); ABG HCO3 20 mEq/L (21-27); ABG Oxygen Saturation 79 % (95-98); ABG PCO2 37 mmHg (35-45); ABG PH 7.35 pH Units (7.32-7.45); ABG PO2 45 mmHg (85-104); ABG TCO2 21 mEq/L (20-26); Blood Gas Modality ASSIST CONTROL; Blood Gas VT 500 cc
[2021-08-18] MEDS: FentaNYL (PF) 1,000 MCG/100 ML IV.SOLN IVC SCH ×4 (01:00→23:54)
[2021-08-18] MEDS: Cisatracurium 200 MG in 0.9 % Sodium Chloride 180 ML IVC SCH ×5 (01:00→23:52)
[2021-08-18] MEDS: Ipratropium 1 PUFF INHALER IH SCH ×7 (01:02→23:42)
[2021-08-18] MEDS: Artificial Tears SOLN 15 ML BOTTLE BOTH EYES SCH ×5 (01:49→21:45)
[2021-08-18] MEDS: Chlorhexidine Rinse 15 ML MOUTHWASH MM SCH ×3 (01:53→21:47)
[2021-08-18] MEDS: Albumin 25% 25gram/100mL 25 GM/100 ML IV.SOLN IVC SCH ×3 (02:38→02:59)
[2021-08-18 02:55] LABS: Amorphous Sediment,Urine Few per hpf (None-Few); Bacteria,Urine Few per hpf (None-Few); Bilirubin,Urine Negative (Negative); Blood,Urine Negative (Negative); Clarity,Urine Turbid (Clear); Color,Urine Yellow (Yellow); Glucose,Urine (UA) Normal (Normal); Ketones,Urine Negative (Negative); Leukocyte Esterase,Urine Negative (Negative); Nitrite,Urine Negative (Negative); PH,Urine 5.5 pH Units (5.0-8.0); Protein,Urine 100 mg/dL (Neg-Trace); RBC,Urine 0-3 per hpf (0-3); Specific Gravity,Urine 1.018 (1.010-1.025); Squamous Epithelial Cell,Urine Few per hpf (None-Few); Urobilinogen,Urine Normal (Normal)
[2021-08-18] MEDS ORDERED: Vasopressin 40 UNIT in D5% in Water 100 ML IVC SCH (03:30)
[2021-08-18] MEDS ORDERED: Phenylephrine 50 MG in 0.9 % Sodium Chloride 250 ML IVC SCH (03:30)
[2021-08-18 04:28] LABS: Basophils % 0.2 %; Hematocrit 41.8 % (37.5-50.1); Lymphocytes # 0.8 K/mcL (0.6-4.6); Lymphocytes % 4.6 %; Mean Corpuscular HGB Conc 33.7 g/dL (31.6-35.5); Mean Corpuscular Volume 85.8 fL (83.0-100.0); Mean Platelet Volume 10.8 fL (9.4-12.4); Monocytes # 0.5 K/mcL (0.0-1.3); Monocytes % 2.8 %; Neutrophils # 16.6 K/mcL (1.6-8.9); Platelet Count 356 K/mcL (140-400); Red Blood Count 4.87 M/mcL (4.19-5.50); Red Cell Distribution Width 14.3 % (11.5-14.5); Segmented Neutrophils % 91.4 %; White Blood Count 18.1 K/mcL (4.3-11.1)
[2021-08-18 04:29] LABS: Hemoglobin 14.1 g/dL (12.9-16.9)
[2021-08-18] MEDS: Norepinephrine 4 MG/254 ML IV.SOLN IVC SCH ×4 (04:30→23:04)
[2021-08-18 04:52] LABS: Alanine Aminotransferase 49 Units/L (7-52); Albumin 3.4 g/dL (3.5-5.7); Albumin/Globulin Ratio 1.1 (1.1-2.2); Alkaline Phosphatase 46 Units/L (34-104); Aspartate Amino Transferase 68 Units/L (13-39); BUN/Creatinine Ratio 16 (6-26); Bilirubin,Total 1.1 mg/dL (0.3-1.0); Blood Urea Nitrogen 77 mg/dL (6-20); C-Reactive Protein 267 mg/L (Less than 10); Calcium 7.9 mg/dL (8.6-10.3); Carbon Dioxide 16 mEq/L (23-29); Chloride 100 mEq/L (98-107); Glucose 219 mg/dL (70-105); Osmolality,Calculated 314 (280-300); Phosphorous 2.4 mg/dL (2.7-4.5); Potassium 3.3 mEq/L (3.5-5.1); Sodium 137 mEq/L (136-145); Total Protein 6.4 g/dL (6.4-8.9); eGFR For African Americans 15 (> 60); eGFR For Non-African Americans 12 (> 60)
[2021-08-18 04:57] LABS: Heparin anti-factor XA UFH 0.39 IU/mL (0.30-0.70)
[2021-08-18 05:00] LABS: Ferritin > 1500 ng/mL (20-250)
[2021-08-18 05:42] LABS: ABG Base Excess -7 mEq/L (-2 to 3); ABG HCO3 17 mEq/L (21-27); ABG Oxygen Saturation 100 % (95-98); ABG PCO2 32 mmHg (35-45); ABG PH 7.34 pH Units (7.32-7.45); ABG PO2 186 mmHg (85-104); ABG TCO2 18 mEq/L (20-26); Blood Gas Modality ASSIST CONTROL; Blood Gas VT 500 cc
[2021-08-18] MEDS: Potassium Chloride 40 MEQ/200 ML BAG IVPB PRN ×2 (06:37→07:45)
[2021-08-18] MEDS: Midazolam HCl 50 MG/100 ML IV.SOLN IVC SCH ×2 (06:41→20:00)
[2021-08-18 06:48] LABS: Troponin I 0.07 ng/mL (< 0.04)
[2021-08-18] MEDS ORDERED: Azithromycin 500 MG in 0.9 % Sodium Chloride 250 ML IVPB SCH (09:00)
[2021-08-18] MEDS ORDERED: cefTRIAXone 1,000 MG in 0.9 % Sodium Chloride Mini Bag 100 ML IVPB SCH (09:00)
[2021-08-18] MEDS: Aspirin 81 MG TAB.CHEW PO SCH (09:34)
[2021-08-18] MEDS: Cholecalciferol (D-3) 1,000 UNIT (25MCG) TABLET PO SCH (09:34)
[2021-08-18] MEDS: Multivit/Ca/Min/Fe/FA 1 TAB TABLET PO SCH (09:34)
[2021-08-18] MEDS: Heparin 25,000 UNIT/250 ML 25,000 UNIT/250 ML IV.SOLN IVC SCH ×2 (09:34→14:57)
[2021-08-18] MEDS ORDERED: *HR* Midazolam HCl 5 MG/5 ML VIAL IVP ONE (11:00)
[2021-08-18] MEDS ORDERED: *HR* Succinylcholine 200 MG/10 ML VIAL IVP ONE (11:00)
[2021-08-18] MEDS ORDERED: *HR* Etomidate 20 MG/10 ML AMPUL IVP ONE (11:00)
[2021-08-18] MEDS ORDERED: D5% in Water 1,000 ML IVC PRN (11:23)
[2021-08-18] MEDS ORDERED: *HR* Dextrose 50 % in Water (Syg) 50 ML SYRINGE IVP PRN (11:23)
[2021-08-18] MEDS ORDERED: Dextrose Gel 15 GM/37.5 ML TUBE PO PRN ×2 (11:23)
[2021-08-18] MEDS: Insulin LISPRO 300 UNITS/3 ML VIAL SUBQ SCH ×3 (13:37→23:57)
[2021-08-18 16:31] LABS: Complement C3 106 mg/dL (87-200)
[2021-08-18] MEDS: Doxycycline 100 MG in 0.9 % Sodium Chloride Mini Bag 100 ML IVPB SCH (17:20)
[2021-08-18] MEDS: Cefepime HCl 1,000 MG in Water for inj. (sterile) 10 ML IVP SCH ×2 (17:21→23:51)
[2021-08-18] MEDS: Nystatin Cream 15 GM TUBE TP SCH (20:00)
[2021-08-19] MEDS: Ipratropium 1 PUFF INHALER IH SCH ×6 (03:07→23:43)
[2021-08-19] MEDS: Norepinephrine 4 MG/254 ML IV.SOLN IVC SCH ×3 (04:38→20:39)
[2021-08-19 04:45] LABS: Hemoglobin 13.5 g/dL (12.9-16.9)
[2021-08-19 04:47] LABS: Hematocrit 40.4 % (37.5-50.1); Mean Corpuscular HGB Conc 33.4 g/dL (31.6-35.5); Mean Corpuscular Hemoglobin 29.3 pg (28.0-33.3); Mean Corpuscular Volume 87.6 fL (83.0-100.0); Mean Platelet Volume 10.7 fL (9.4-12.4); Platelet Count 413 K/mcL (140-400); Red Blood Count 4.61 M/mcL (4.19-5.50); Red Cell Distribution Width 14.7 % (11.5-14.5)
[2021-08-19 04:51] LABS: ABG Base Excess -7 mEq/L (-2 to 3); ABG HCO3 19 mEq/L (21-27); ABG Oxygen Saturation 83 % (95-98); ABG PCO2 42 mmHg (35-45); ABG PH 7.27 pH Units (7.32-7.45); ABG PO2 54 mmHg (85-104); ABG TCO2 21 mEq/L (20-26); Blood Gas Modality ASSIST CONTROL; Blood Gas VT 440 cc
[2021-08-19 04:54] LABS: White Blood Count 30.7 K/mcL (4.3-11.1)
[2021-08-19 05:02] LABS: Uric Acid 14.3 mg/dL (2.3-7.6)
[2021-08-19 05:07] LABS: Heparin anti-factor XA UFH 0.31 IU/mL (0.30-0.70)
[2021-08-19] MEDS: Insulin LISPRO 300 UNITS/3 ML VIAL SUBQ SCH ×4 (05:32→23:23)
[2021-08-19] MEDS: Doxycycline 100 MG in 0.9 % Sodium Chloride Mini Bag 100 ML IVPB SCH (05:34)
[2021-08-19] MEDS: Cisatracurium 400 MG in 0.9 % Sodium Chloride 360 ML IVC SCH ×2 (06:47→19:57)
[2021-08-19] MEDS: Nystatin Cream 15 GM TUBE TP SCH ×3 (08:30→19:47)
[2021-08-19] MEDS: Cefepime HCl 1,000 MG in Water for inj. (sterile) 10 ML IVP SCH ×2 (08:42→18:25)
[2021-08-19] MEDS: Aspirin 81 MG TAB.CHEW PO SCH (08:43)
[2021-08-19] MEDS: Cholecalciferol (D-3) 1,000 UNIT (25MCG) TABLET PO SCH (08:43)
[2021-08-19] MEDS: Artificial Tears SOLN 15 ML BOTTLE BOTH EYES SCH ×5 (08:43→23:23)
[2021-08-19] MEDS: Multivit/Ca/Min/Fe/FA 1 TAB TABLET PO SCH (08:43)
[2021-08-19] MEDS: Chlorhexidine Rinse 15 ML MOUTHWASH MM SCH ×2 (08:43→19:46)
[2021-08-19] MEDS: Midazolam HCl 50 MG/100 ML IV.SOLN IVC SCH ×2 (10:05→23:22)
[2021-08-19] MEDS: FentaNYL (PF) 1,000 MCG/100 ML IV.SOLN IVC SCH (14:07)
[2021-08-19] MEDS ORDERED: Artificial Tears SOLN 15 ML BOTTLE BOTH EYES PRN (14:15)
[2021-08-19 15:19] LABS: Albumin 3.1 g/dL (3.5-5.7); Bilirubin,Total 0.5 mg/dL (0.3-1.0); Calcium 7.9 mg/dL (8.6-10.3); Potassium 3.6 mEq/L (3.5-5.1); Total Protein 6.1 g/dL (6.4-8.9)
[2021-08-19] MEDS: Heparin 25,000 UNIT/250 ML 25,000 UNIT/250 ML IV.SOLN IVC SCH (15:51)
[2021-08-19] MEDS ORDERED: Bumetanide 12 MG in 0.9 % Sodium Chloride 48 ML IVC SCH (16:00)
[2021-08-20] MEDS: FentaNYL (PF) 1,000 MCG/100 ML IV.SOLN IVC SCH ×2 (01:00→14:05)
[2021-08-20] MEDS: Norepinephrine 4 MG/254 ML IV.SOLN IVC SCH ×6 (01:28→20:35)
[2021-08-20 02:58] LABS: Red Cell Distribution Width 15.5 % (11.5-14.5)
[2021-08-20 03:00] LABS: Hematocrit 39.3 % (37.5-50.1); Mean Corpuscular HGB Conc 33.1 g/dL (31.6-35.5); Mean Corpuscular Hemoglobin 29.5 pg (28.0-33.3); Mean Corpuscular Volume 89.1 fL (83.0-100.0); Mean Platelet Volume 10.7 fL (9.4-12.4); Platelet Count 433 K/mcL (140-400); Red Blood Count 4.41 M/mcL (4.19-5.50)
[2021-08-20 03:03] LABS: VBG Ionized Calcium 1.07 mmol/L (1.15-1.35)
[2021-08-20 03:03] LABS: White Blood Count 34.4 K/mcL (4.3-11.1)
[2021-08-20 03:10] LABS: Bilirubin,Total 0.5 mg/dL (0.3-1.0); Calcium 7.7 mg/dL (8.6-10.3); Potassium 3.5 mEq/L (3.5-5.1)
[2021-08-20 03:13] LABS: Heparin anti-factor XA UFH 0.48 IU/mL (0.30-0.70)
[2021-08-20] MEDS: Artificial Tears SOLN 15 ML BOTTLE BOTH EYES SCH ×6 (03:14→22:59)
[2021-08-20] MEDS: Ipratropium 1 PUFF INHALER IH SCH ×6 (03:42→23:22)
[2021-08-20 03:52] LABS: Creatine Kinase 4296 Units/L (30-223); Phosphorous 5.2 mg/dL (2.7-4.5)
[2021-08-20] MEDS: Calcium Gluconate 1gm/50mL 1 GM/50 ML BAG IVPB SCH ×2 (04:22→05:08)
[2021-08-20 05:02] LABS: ABG Base Excess -9 mEq/L (-2 to 3); ABG HCO3 19 mEq/L (21-27); ABG Oxygen Saturation 95 % (95-98); ABG PCO2 46 mmHg (35-45); ABG PH 7.23 pH Units (7.32-7.45); ABG PO2 90 mmHg (85-104); ABG TCO2 20 mEq/L (20-26); Blood Gas VT 440 cc
[2021-08-20] MEDS: Cefepime HCl 1,000 MG in Water for inj. (sterile) 10 ML IVP SCH ×2 (05:08→17:34)
[2021-08-20] MEDS: Insulin LISPRO 300 UNITS/3 ML VIAL SUBQ SCH ×4 (05:21→23:24)
[2021-08-20] MEDS: Chlorhexidine Rinse 15 ML MOUTHWASH MM SCH ×2 (08:08→19:42)
[2021-08-20] MEDS: Multivit/Ca/Min/Fe/FA 1 TAB TABLET PO SCH (08:08)
[2021-08-20] MEDS: Aspirin 81 MG TAB.CHEW PO SCH (08:08)
[2021-08-20] MEDS: Cholecalciferol (D-3) 1,000 UNIT (25MCG) TABLET PO SCH (08:08)
[2021-08-20] MEDS: Pantoprazole 40 MG VIAL IVP SCH (08:09)
[2021-08-20] MEDS: Nystatin Cream 15 GM TUBE TP SCH ×3 (08:09→19:42)
[2021-08-20] MEDS ORDERED: Dexamethasone Sodium Phos/PF 10 MG/ML VIAL IVP SCH (09:00)
[2021-08-20 10:12] LABS: Protein/Creatinine Ratio,Urine 0.35 mg/mg (0.00-0.20)
[2021-08-20] MEDS: Cisatracurium 400 MG in 0.9 % Sodium Chloride 360 ML IVC SCH (10:44)
[2021-08-20] MEDS: Micafungin 100 MG in 0.9 % Sodium Chloride Mini Bag 100 ML IVPB SCH (10:52)
[2021-08-20] MEDS: Midazolam HCl 50 MG/100 ML IV.SOLN IVC SCH (13:02)
[2021-08-20 14:57] LABS: Ferritin > 1500 ng/mL (20-250)
[2021-08-20] MEDS ORDERED: *HR* Heparin 5,000 UNIT/ML VIAL IVP PRN (15:06)
[2021-08-20] MEDS ORDERED: Calcium Gluconate 1gm/50mL 1 GM/50 ML BAG IVPB PRN ×2 (15:06)
[2021-08-20] MEDS: 0.9 % Sodium Chloride 1,000 ML PRIME SCH ×8 (16:05→22:48)
[2021-08-20] MEDS: SODIUM CITRATE 500 ML CRRT SCH ×4 (16:30→23:51)
[2021-08-20] MEDS: Calcium Chloride 4,000 MG in 0.9 % Sodium Chloride 1,000 ML CRRT SCH (16:30)
[2021-08-20] MEDS: PrismaSATE BGK 4/2.5 5,000 ML CRRT SCH ×4 (16:30→20:36)
[2021-08-20 18:26] LABS: VBG Ionized Calcium 1.15 mmol/L (1.15-1.35)
[2021-08-20] MEDS ORDERED: Isovue-370 500 ML BOTTLE PO ONE (22:46)
[2021-08-20 23:35] LABS: VBG Ionized Calcium 0.96 mmol/L (1.15-1.35)
[2021-08-21] MEDS: Cisatracurium 400 MG in 0.9 % Sodium Chloride 360 ML IVC SCH ×2 (00:05→12:35)
[2021-08-21] MEDS ORDERED: *HR* Heparin 5,000 UNIT/ML VIAL ONE (00:10)
[2021-08-21] MEDS: 0.9 % Sodium Chloride 1,000 ML PRIME SCH ×9 (01:31→08:27)
[2021-08-21] MEDS: Norepinephrine 4 MG/254 ML IV.SOLN IVC SCH ×3 (01:32→20:14)
[2021-08-21] MEDS: Midazolam HCl 50 MG/100 ML IV.SOLN IVC SCH ×3 (01:55→16:45)
[2021-08-21] MEDS: SODIUM CITRATE 500 ML CRRT SCH ×9 (02:20→22:46)
[2021-08-21 02:22] LABS: VBG Ionized Calcium 1.11 mmol/L (1.15-1.35)
[2021-08-21] MEDS: PrismaSATE BGK 4/2.5 5,000 ML CRRT SCH ×9 (02:27→22:46)
[2021-08-21] MEDS: Artificial Tears SOLN 15 ML BOTTLE BOTH EYES SCH ×5 (02:55→20:49)
[2021-08-21] MEDS: Ipratropium 1 PUFF INHALER IH SCH ×6 (03:35→23:36)
[2021-08-21 04:17] LABS: Mean Corpuscular Volume 88.1 fL (83.0-100.0); Mean Platelet Volume 10.2 fL (9.4-12.4); Red Cell Distribution Width 15.7 % (11.5-14.5)
[2021-08-21 04:18] LABS: Hematocrit 37.8 % (37.5-50.1); Hemoglobin 12.5 g/dL (12.9-16.9); Mean Corpuscular HGB Conc 33.1 g/dL (31.6-35.5); Mean Corpuscular Hemoglobin 29.1 pg (28.0-33.3); Platelet Count 275 K/mcL (140-400); Red Blood Count 4.29 M/mcL (4.19-5.50)
[2021-08-21 04:27] LABS: Albumin 2.9 g/dL (3.5-5.7); Albumin/Globulin Ratio 1.1 (1.1-2.2); Bilirubin,Total 0.6 mg/dL (0.3-1.0); Calcium 8.1 mg/dL (8.6-10.3); Globulin 2.7 g/dL (2.4-3.5); Potassium 3.7 mEq/L (3.5-5.1); Total Protein 5.6 g/dL (6.4-8.9); White Blood Count 32.5 K/mcL (4.3-11.1)
[2021-08-21 04:44] LABS: Albumin 2.8 g/dL (3.5-5.7); Bilirubin,Direct 0.2 mg/dL (0.0-0.2); Bilirubin,Indirect 0.4 mg/dL (0.0-1.0); Bilirubin,Total 0.6 mg/dL (0.3-1.0); Globulin 2.8 g/dL (2.4-3.5); Total Protein 5.6 g/dL (6.4-8.9)
[2021-08-21 04:50] LABS: ABG Base Excess -1 mEq/L (-2 to 3); ABG HCO3 25 mEq/L (21-27); ABG Oxygen Saturation 89 % (95-98); ABG PCO2 46 mmHg (35-45); ABG PH 7.34 pH Units (7.32-7.45); ABG PO2 61 mmHg (85-104); ABG TCO2 26 mEq/L (20-26); Blood Gas Modality ASSIST CONTROL; Blood Gas VT 440 cc
[2021-08-21] MEDS: Insulin LISPRO 300 UNITS/3 ML VIAL SUBQ SCH ×3 (05:07→18:38)
[2021-08-21] MEDS: Cefepime HCl 1,000 MG in Water for inj. (sterile) 10 ML IVP SCH (05:12)
[2021-08-21 05:33] LABS: VBG Ionized Calcium 1.03 mmol/L (1.15-1.35)
[2021-08-21] MEDS: Calcium Chloride 4,000 MG in 0.9 % Sodium Chloride 1,000 ML CRRT SCH ×2 (06:04→20:14)
[2021-08-21] MEDS: Chlorhexidine Rinse 15 ML MOUTHWASH MM SCH ×2 (08:25→20:49)
[2021-08-21] MEDS: Pantoprazole 40 MG VIAL IVP SCH ×2 (08:25→18:38)
[2021-08-21] MEDS: FentaNYL (PF) 1,000 MCG/100 ML IV.SOLN IVC SCH ×2 (08:26)
[2021-08-21] MEDS: Aspirin 81 MG TAB.CHEW PO SCH (08:28)
[2021-08-21] MEDS: Multivit/Ca/Min/Fe/FA 1 TAB TABLET PO SCH (08:28)
[2021-08-21] MEDS: Dexamethasone Sodium Phos/PF 10 MG/ML VIAL IVP SCH (08:28)
[2021-08-21] MEDS: Micafungin 100 MG in 0.9 % Sodium Chloride Mini Bag 100 ML IVPB SCH (08:28)
[2021-08-21] MEDS: Cholecalciferol (D-3) 1,000 UNIT (25MCG) TABLET PO SCH (08:28)
[2021-08-21] MEDS: Nystatin Cream 15 GM TUBE TP SCH ×3 (08:29→20:50)
[2021-08-21] MEDS ORDERED: 0.9 % Sodium Chloride 1,000 ML PRIME PRN (09:00)
[2021-08-21 09:05] LABS: VBG Ionized Calcium 1.05 mmol/L (1.15-1.35)
[2021-08-21 10:48] LABS: Immature Granulocytes % 3.8 % (0-4); Lymphocytes # 0.6 K/mcL (0.6-4.6); Lymphocytes % 1.7 %; Neutrophils # 29.3 K/mcL (1.6-8.9); Segmented Neutrophils % 90.1 %
[2021-08-21 10:49] LABS: Basophils # 0.2 K/mcL (0.0-0.2); Basophils % 0.5 %; Monocytes # 1.3 K/mcL (0.0-1.3); Monocytes % 3.9 %
[2021-08-21 11:08] LABS: Platelet Estimate Normal (Normal)
[2021-08-21 11:36] LABS: Basophils # 0.1 K/mcL (0.0-0.2); Basophils % 0.3 %; Hemoglobin 11.9 g/dL (12.9-16.9); Immature Granulocytes % 5.3 % (0-4); Lymphocytes # 0.5 K/mcL (0.6-4.6); Lymphocytes % 1.8 %; Mean Corpuscular Hemoglobin 29.8 pg (28.0-33.3); Mean Corpuscular Volume 87.7 fL (83.0-100.0); Mean Platelet Volume 10.3 fL (9.4-12.4); Monocytes % 3.7 %; Neutrophils # 24.9 K/mcL (1.6-8.9); Nucleated Red Blood Cells 0.1 /100 WBC (0); Platelet Count 241 K/mcL (140-400); Red Blood Count 3.99 M/mcL (4.19-5.50); Red Cell Distribution Width 15.6 % (11.5-14.5); Segmented Neutrophils % 88.9 %
[2021-08-21 11:38] LABS: VBG Ionized Calcium 1.07 mmol/L (1.15-1.35)
[2021-08-21 15:13] LABS: VBG Ionized Calcium 1.11 mmol/L (1.15-1.35)
[2021-08-21] MEDS ORDERED: Cefepime HCl 2,000 MG in Water for inj. (sterile) 20 ML IVP SCH (18:00)
[2021-08-21 18:48] LABS: VBG Ionized Calcium 1.11 mmol/L (1.15-1.35)
[2021-08-21] MEDS: Cefepime HCl 2,000 MG in 0.9 % Sodium Chloride Mini Bag 100 ML IVP SCH (20:50)
[2021-08-21 21:43] LABS: VBG Ionized Calcium 1.08 mmol/L (1.15-1.35)
[2021-08-21 23:30] LABS: VBG Ionized Calcium 1.19 mmol/L (1.15-1.35)
[2021-08-22] MEDS: Artificial Tears SOLN 15 ML BOTTLE BOTH EYES SCH ×7 (00:05→23:19)
[2021-08-22] MEDS: Insulin LISPRO 300 UNITS/3 ML VIAL SUBQ SCH ×4 (00:05→21:09)
[2021-08-22] MEDS: PrismaSATE BGK 4/2.5 5,000 ML CRRT SCH ×12 (00:09→22:10)
[2021-08-22] MEDS: FentaNYL (PF) 1,000 MCG/100 ML IV.SOLN IVC SCH ×3 (00:09→20:01)
[2021-08-22] MEDS: SODIUM CITRATE 500 ML CRRT SCH ×7 (01:37→17:00)
[2021-08-22 03:01] LABS: VBG Ionized Calcium 1.21 mmol/L (1.15-1.35)
[2021-08-22 03:18] LABS: Hematocrit 35.9 % (37.5-50.1); Hemoglobin 11.5 g/dL (12.9-16.9); Mean Corpuscular Hemoglobin 28.6 pg (28.0-33.3); Mean Corpuscular Volume 89.3 fL (83.0-100.0); Mean Platelet Volume 10.5 fL (9.4-12.4); Platelet Count 183 K/mcL (140-400); Red Blood Count 4.02 M/mcL (4.19-5.50); Red Cell Distribution Width 15.8 % (11.5-14.5); White Blood Count 20.7 K/mcL (4.3-11.1)
[2021-08-22] MEDS: Ipratropium 1 PUFF INHALER IH SCH ×6 (03:20→23:23)
[2021-08-22 03:23] LABS: Magnesium 2.2 mg/dL (1.6-2.6); Phosphorous 4.1 mg/dL (2.7-4.5)
[2021-08-22] MEDS: Cisatracurium 400 MG in 0.9 % Sodium Chloride 360 ML IVC SCH ×2 (04:06→17:20)
[2021-08-22 04:18] LABS: ABG Base Excess 5 mEq/L (-2 to 3); ABG HCO3 30 mEq/L (21-27); ABG Oxygen Saturation 93 % (95-98); ABG PCO2 49 mmHg (35-45); ABG PO2 67 mmHg (85-104); ABG TCO2 32 mEq/L (20-26); Blood Gas VT 440 cc
[2021-08-22 04:36] LABS: Albumin 2.7 g/dL (3.5-5.7); Albumin/Globulin Ratio 1.1 (1.1-2.2); Bilirubin,Total 0.6 mg/dL (0.3-1.0); Calcium 8.9 mg/dL (8.6-10.3); Globulin 2.5 g/dL (2.4-3.5); Potassium 3.9 mEq/L (3.5-5.1); Total Protein 5.2 g/dL (6.4-8.9)
[2021-08-22 05:02] LABS: Lymphocytes # 1.5 K/mcL (0.6-4.6); Monocytes # 0.4 K/mcL (0.0-1.3); Neutrophils # 18.8 K/mcL (1.6-8.9)
[2021-08-22 05:03] LABS: Platelet Estimate Normal (Normal); Reactive Lymphocytes Present (Not Present)
[2021-08-22] MEDS: Cefepime HCl 2,000 MG in 0.9 % Sodium Chloride Mini Bag 100 ML IVP SCH ×2 (06:06→17:16)
[2021-08-22] MEDS: Pantoprazole 40 MG VIAL IVP SCH ×2 (06:06→17:17)
[2021-08-22] MEDS: Midazolam HCl 50 MG/100 ML IV.SOLN IVC SCH ×2 (06:57→20:02)
[2021-08-22] MEDS: Calcium Chloride 4,000 MG in 0.9 % Sodium Chloride 1,000 ML CRRT SCH ×2 (07:13→21:09)
[2021-08-22 07:37] LABS: ANA IgG by ELISA NONE DETECTED (None Detected)
[2021-08-22] MEDS: Chlorhexidine Rinse 15 ML MOUTHWASH MM SCH ×2 (07:51→19:33)
[2021-08-22] MEDS: Aspirin 81 MG TAB.CHEW PO SCH (07:52)
[2021-08-22] MEDS: Cholecalciferol (D-3) 1,000 UNIT (25MCG) TABLET PO SCH (07:52)
[2021-08-22] MEDS: Dexamethasone Sodium Phos/PF 10 MG/ML VIAL IVP SCH (07:52)
[2021-08-22] MEDS: Multivit/Ca/Min/Fe/FA 1 TAB TABLET PO SCH (07:52)
[2021-08-22] MEDS: Micafungin 100 MG in 0.9 % Sodium Chloride Mini Bag 100 ML IVPB SCH (07:52)
[2021-08-22] MEDS: Nystatin Cream 15 GM TUBE TP SCH ×3 (07:53→19:33)
[2021-08-22] MEDS ORDERED: *HR* Heparin 5,000 UNIT/ML VIAL IVP PRN ×2 (08:38)
[2021-08-22 09:41] LABS: VBG Ionized Calcium 1.21 mmol/L (1.15-1.35)
[2021-08-22] MEDS: Heparin 25,000 UNIT/250 ML 25,000 UNIT/250 ML IV.SOLN IVC SCH (12:50)
[2021-08-22 15:15] LABS: Hematocrit 36.3 % (37.5-50.1); Mean Platelet Volume 10.4 fL (9.4-12.4)
[2021-08-22 15:16] LABS: Hemoglobin 11.9 g/dL (12.9-16.9); Mean Corpuscular HGB Conc 32.8 g/dL (31.6-35.5); Mean Corpuscular Hemoglobin 29.3 pg (28.0-33.3); Mean Corpuscular Volume 89.4 fL (83.0-100.0); Platelet Count 206 K/mcL (140-400); Red Blood Count 4.06 M/mcL (4.19-5.50); Red Cell Distribution Width 15.7 % (11.5-14.5); White Blood Count 28.8 K/mcL (4.3-11.1)
[2021-08-22 15:29] LABS: VBG Ionized Calcium 1.22 mmol/L (1.15-1.35)
[2021-08-22] MEDS: Sennosides/Docusate Sodium TABLET PO SCH ×2 (15:40→19:33)
[2021-08-22 21:16] LABS: VBG Ionized Calcium 1.29 mmol/L (1.15-1.35)
[2021-08-23] MEDS: Insulin LISPRO 300 UNITS/3 ML VIAL SUBQ SCH ×5 (00:24→23:08)
[2021-08-23 00:31] LABS: VBG Ionized Calcium 1.29 mmol/L (1.15-1.35)
[2021-08-23] MEDS: FentaNYL (PF) 1,000 MCG/100 ML IV.SOLN IVC SCH ×4 (01:09→19:26)
[2021-08-23] MEDS: PrismaSATE BGK 4/2.5 5,000 ML CRRT SCH ×12 (01:09→22:28)
[2021-08-23] MEDS: Ipratropium 1 PUFF INHALER IH SCH ×6 (03:22→23:35)
[2021-08-23 03:55] LABS: Hematocrit 37.9 % (37.5-50.1); Hemoglobin 11.8 g/dL (12.9-16.9); Mean Corpuscular HGB Conc 31.1 g/dL (31.6-35.5); Mean Corpuscular Hemoglobin 28.9 pg (28.0-33.3); Mean Corpuscular Volume 92.9 fL (83.0-100.0); Nucleated Red Blood Cells 0.2 /100 WBC (0); Platelet Count 225 K/mcL (140-400); Red Blood Count 4.08 M/mcL (4.19-5.50); Red Cell Distribution Width 15.8 % (11.5-14.5)
[2021-08-23 03:57] LABS: White Blood Count 37.3 K/mcL (4.3-11.1)
[2021-08-23] MEDS: Midazolam HCl 50 MG/100 ML IV.SOLN IVC SCH ×3 (04:08→19:26)
[2021-08-23] MEDS: Artificial Tears SOLN 15 ML BOTTLE BOTH EYES SCH ×6 (04:10→23:08)
[2021-08-23 04:11] LABS: Lymphocytes # 2.2 K/mcL (0.6-4.6); Monocytes # 1.5 K/mcL (0.0-1.3); Neutrophils # 31.3 K/mcL (1.6-8.9)
[2021-08-23 04:12] LABS: Platelet Estimate Normal (Normal); Reactive Lymphocytes Present (Not Present)
[2021-08-23 04:36] LABS: ABG Base Excess 2 mEq/L (-2 to 3); ABG HCO3 28 mEq/L (21-27); ABG Oxygen Saturation 95 % (95-98); ABG PCO2 48 mmHg (35-45); ABG PH 7.38 pH Units (7.32-7.45); ABG PO2 78 mmHg (85-104); ABG TCO2 30 mEq/L (20-26); Blood Gas VT 440 cc
[2021-08-23] MEDS: Pantoprazole 40 MG VIAL IVP SCH (05:10)
[2021-08-23] MEDS: Cefepime HCl 2,000 MG in 0.9 % Sodium Chloride Mini Bag 100 ML IVP SCH (05:10)
[2021-08-23 05:47] LABS: Albumin 2.6 g/dL (3.5-5.7); Albumin/Globulin Ratio 0.9 (1.1-2.2); Bilirubin,Total 0.8 mg/dL (0.3-1.0); Calcium 8.9 mg/dL (8.6-10.3); Globulin 2.8 g/dL (2.4-3.5); Total Protein 5.4 g/dL (6.4-8.9)
[2021-08-23] MEDS: Cisatracurium 400 MG in 0.9 % Sodium Chloride 360 ML IVC SCH ×2 (06:15→16:30)
[2021-08-23 06:37] LABS: VBG Ionized Calcium 1.32 mmol/L (1.15-1.35)
[2021-08-23] MEDS: Cholecalciferol (D-3) 1,000 UNIT (25MCG) TABLET PO SCH (08:01)
[2021-08-23] MEDS: Aspirin 81 MG TAB.CHEW PO SCH (08:01)
[2021-08-23] MEDS: Dexamethasone Sodium Phos/PF 10 MG/ML VIAL IVP SCH (08:01)
[2021-08-23] MEDS: Chlorhexidine Rinse 15 ML MOUTHWASH MM SCH ×2 (08:01→20:05)
[2021-08-23] MEDS: Sennosides/Docusate Sodium TABLET PO SCH ×2 (08:01→20:05)
[2021-08-23] MEDS: Multivit/Ca/Min/Fe/FA 1 TAB TABLET PO SCH (08:02)
[2021-08-23] MEDS: Nystatin Cream 15 GM TUBE TP SCH ×3 (08:04→20:06)
[2021-08-23] MEDS ORDERED: MetroNIDAZOLE 500 MG/100 ML 500 MG/100 ML BAG IVPB SCH (08:45)
[2021-08-23] MEDS ORDERED: Doxycycline 100 MG in 0.9 % Sodium Chloride Mini Bag 100 ML IVPB SCH (08:45)
[2021-08-23] MEDS ORDERED: Dexamethasone Sodium Phos/PF 10 MG/ML VIAL IVP SCH (09:00)
[2021-08-23] MEDS: Norepinephrine 4 MG/254 ML IV.SOLN IVC SCH ×2 (09:11→17:31)
[2021-08-23] MEDS: Heparin 25,000 UNIT/250 ML 25,000 UNIT/250 ML IV.SOLN IVC SCH ×2 (09:14→19:27)
[2021-08-23] MEDS: Piperacillin/Tazobactam 3.375 GM in 0.9 % Sodium Chloride Mini Bag 100 ML IVPB SCH (18:04)
[2021-08-23 18:40] LABS: ANCA IFA Titer <1:20 (<1:20)
[2021-08-24] MEDS: FentaNYL (PF) 1,000 MCG/100 ML IV.SOLN IVC SCH ×6 (00:05→23:06)
[2021-08-24] MEDS: Norepinephrine 4 MG/254 ML IV.SOLN IVC SCH ×5 (00:06→23:34)
[2021-08-24] MEDS: PrismaSATE BGK 4/2.5 5,000 ML CRRT SCH ×13 (00:08→22:06)
[2021-08-24] MEDS: Midazolam HCl 50 MG/100 ML IV.SOLN IVC SCH ×4 (01:05→23:33)
[2021-08-24] MEDS: Artificial Tears SOLN 15 ML BOTTLE BOTH EYES SCH ×6 (03:10→23:06)
[2021-08-24] MEDS: Cisatracurium 400 MG in 0.9 % Sodium Chloride 360 ML IVC SCH ×3 (03:13→23:33)
[2021-08-24 03:19] LABS: Red Cell Distribution Width 15.8 % (11.5-14.5)
[2021-08-24 03:21] LABS: Hematocrit 39.4 % (37.5-50.1); Hemoglobin 11.9 g/dL (12.9-16.9); Mean Corpuscular HGB Conc 30.2 g/dL (31.6-35.5); Mean Corpuscular Hemoglobin 28.4 pg (28.0-33.3); Mean Platelet Volume 11.6 fL (9.4-12.4); Nucleated Red Blood Cells 1.6 /100 WBC (0); Platelet Count 230 K/mcL (140-400); Red Blood Count 4.19 M/mcL (4.19-5.50)
[2021-08-24 03:26] LABS: White Blood Count 43.9 K/mcL (4.3-11.1)
[2021-08-24] MEDS: Ipratropium 1 PUFF INHALER IH SCH ×6 (03:28→23:04)
[2021-08-24 04:01] LABS: Lymphocytes # 2.6 K/mcL (0.6-4.6); Monocytes # 2.6 K/mcL (0.0-1.3); Neutrophils # 36.9 K/mcL (1.6-8.9); Platelet Estimate Normal (Normal); Reactive Lymphocytes Present (Not Present)
[2021-08-24 04:32] LABS: Calcium 7.7 mg/dL (8.6-10.3); Potassium 5.2 mEq/L (3.5-5.1)
[2021-08-24 04:58] LABS: ABG Base Excess -2 mEq/L (-2 to 3); ABG HCO3 27 mEq/L (21-27); ABG Oxygen Saturation 83 % (95-98); ABG PCO2 61 mmHg (35-45); ABG PH 7.25 pH Units (7.32-7.45); ABG PO2 56 mmHg (85-104); ABG TCO2 28 mEq/L (20-26); Blood Gas VT 440 cc
[2021-08-24] MEDS: Piperacillin/Tazobactam 3.375 GM in 0.9 % Sodium Chloride Mini Bag 100 ML IVPB SCH ×3 (05:09→23:19)
[2021-08-24] MEDS: Insulin LISPRO 300 UNITS/3 ML VIAL SUBQ SCH ×4 (05:19→23:06)
[2021-08-24] MEDS: Aspirin 81 MG TAB.CHEW PO SCH (07:51)
[2021-08-24] MEDS: Sennosides/Docusate Sodium TABLET PO SCH ×2 (07:51→20:06)
[2021-08-24] MEDS: Chlorhexidine Rinse 15 ML MOUTHWASH MM SCH ×2 (07:51→20:06)
[2021-08-24] MEDS: Cholecalciferol (D-3) 1,000 UNIT (25MCG) TABLET PO SCH (07:51)
[2021-08-24] MEDS: Pantoprazole 40 MG VIAL IVP SCH (07:51)
[2021-08-24] MEDS: Nystatin Cream 15 GM TUBE TP SCH ×3 (07:54→20:08)
[2021-08-24] MEDS ORDERED: Dexamethasone Sodium Phos/PF 10 MG/ML VIAL IVP SCH (09:00)
[2021-08-24] MEDS: MetroNIDAZOLE 500 MG/100 ML 500 MG/100 ML BAG IVPB SCH ×2 (15:32→23:19)
[2021-08-24] MEDS: Heparin 25,000 UNIT/250 ML 25,000 UNIT/250 ML IV.SOLN IVC SCH ×2 (19:13→20:10)
[2021-08-25] MEDS: PrismaSATE BGK 4/2.5 5,000 ML CRRT SCH ×14 (01:07→20:32)
[2021-08-25] MEDS: Artificial Tears SOLN 15 ML BOTTLE BOTH EYES SCH ×6 (03:04→23:05)
[2021-08-25 03:22] LABS: Basophils % 0.1 %; Immature Granulocytes % 13.1 % (0-4)
[2021-08-25 03:23] LABS: Basophils # 0.1 K/mcL (0.0-0.2); Eosinophils # 0.1 K/mcL (0.0-0.6); Eosinophils % 0.2 %; Hematocrit 36.2 % (37.5-50.1); Hemoglobin 11.4 g/dL (12.9-16.9); Lymphocytes % 3.3 %; Mean Corpuscular HGB Conc 31.5 g/dL (31.6-35.5); Mean Corpuscular Hemoglobin 29.9 pg (28.0-33.3); Mean Platelet Volume 11.4 fL (9.4-12.4); Monocytes # 1.6 K/mcL (0.0-1.3); Monocytes % 3.3 %; Neutrophils # 37.8 K/mcL (1.6-8.9); Nucleated Red Blood Cells 2.9 /100 WBC (0); Platelet Count 198 K/mcL (140-400); Red Blood Count 3.81 M/mcL (4.19-5.50); Red Cell Distribution Width 16.2 % (11.5-14.5)
[2021-08-25 03:25] LABS: Lymphocytes # 1.6 K/mcL (0.6-4.6)
[2021-08-25 03:26] LABS: White Blood Count 47.3 K/mcL (4.3-11.1)
[2021-08-25 03:35] LABS: VBG Ionized Calcium 1.06 mmol/L (1.15-1.35)
[2021-08-25] MEDS: Ipratropium 1 PUFF INHALER IH SCH ×6 (03:38→23:44)
[2021-08-25 03:44] LABS: Magnesium 2.6 mg/dL (1.6-2.6); Phosphorous 4.5 mg/dL (2.7-4.5)
[2021-08-25] MEDS: FentaNYL (PF) 1,000 MCG/100 ML IV.SOLN IVC SCH ×2 (04:05→09:32)
[2021-08-25 04:32] LABS: ABG Base Excess -3 mEq/L (-2 to 3); ABG HCO3 25 mEq/L (21-27); ABG Oxygen Saturation 91 % (95-98); ABG PCO2 54 mmHg (35-45); ABG PH 7.27 pH Units (7.32-7.45); ABG PO2 69 mmHg (85-104); ABG TCO2 26 mEq/L (20-26); Blood Gas Modality ASSIST CONTROL; Blood Gas VT 440 cc
[2021-08-25 05:06] LABS: Calcium 7.5 mg/dL (8.6-10.3); Potassium 5.3 mEq/L (3.5-5.1)
[2021-08-25] MEDS: Midazolam HCl 50 MG/100 ML IV.SOLN IVC SCH ×3 (05:07→19:35)
[2021-08-25] MEDS: Insulin LISPRO 300 UNITS/3 ML VIAL SUBQ SCH ×4 (05:11→23:06)
[2021-08-25] MEDS: Calcium Gluconate 1gm/50mL 1 GM/50 ML BAG IVPB SCH ×2 (06:08→06:41)
[2021-08-25] MEDS: Norepinephrine 4 MG/254 ML IV.SOLN IVC SCH ×2 (06:08→13:45)
[2021-08-25] MEDS: Pantoprazole 40 MG VIAL IVP SCH (08:34)
[2021-08-25] MEDS: Chlorhexidine Rinse 15 ML MOUTHWASH MM SCH ×2 (08:34→20:18)
[2021-08-25] MEDS: Aspirin 81 MG TAB.CHEW PO SCH (08:35)
[2021-08-25] MEDS: Sennosides/Docusate Sodium TABLET PO SCH ×2 (08:35→20:18)
[2021-08-25] MEDS: Cholecalciferol (D-3) 1,000 UNIT (25MCG) TABLET PO SCH (08:35)
[2021-08-25] MEDS: Nystatin Cream 15 GM TUBE TP SCH ×3 (08:35→20:19)
[2021-08-25 08:53] LABS: ANCA IFA Pattern NONE DETECTED (None Detected); Serine Protease-3 Antibody 1 AU/mL (0-19)
[2021-08-25] MEDS: Piperacillin/Tazobactam 3.375 GM in 0.9 % Sodium Chloride Mini Bag 100 ML IVPB SCH ×3 (09:13→23:06)
[2021-08-25] MEDS: MetroNIDAZOLE 500 MG/100 ML 500 MG/100 ML BAG IVPB SCH ×3 (09:14→23:06)
[2021-08-25] MEDS ORDERED: Perflutren Lipid Microsphere 1.3 ML in 0.9 % Sodium Chloride 8.7 ML IVP PRN (10:26)
[2021-08-25] MEDS: Cisatracurium 400 MG in 0.9 % Sodium Chloride 360 ML IVC SCH ×2 (10:35→21:05)
[2021-08-25] MEDS: FentaNYL (PF) 2,500 MCG/50 ML IV.SOLN IVC SCH (15:36)
[2021-08-25] MEDS: Norepinephrine 8 MG in 0.9 % Sodium Chloride 250 ML IVC SCH (18:47)
[2021-08-25] MEDS: Heparin 25,000 UNIT/250 ML 25,000 UNIT/250 ML IV.SOLN IVC SCH ×2 (20:06→23:11)
[2021-08-26] MEDS: FentaNYL (PF) 2,500 MCG/50 ML IV.SOLN IVC SCH (00:06)
[2021-08-26] MEDS: Midazolam HCl 50 MG/100 ML IV.SOLN IVC SCH (01:36)
[2021-08-26] MEDS: PrismaSATE BGK 4/2.5 5,000 ML CRRT SCH ×2 (02:16→02:17)
[2021-08-26] MEDS: Norepinephrine 8 MG in 0.9 % Sodium Chloride 250 ML IVC SCH (03:18)
[2021-08-26] MEDS: Artificial Tears SOLN 15 ML BOTTLE BOTH EYES SCH (03:20)
[2021-08-26 03:24] LABS: VBG Ionized Calcium 1.07 mmol/L (1.15-1.35)
[2021-08-26 03:32] LABS: Hematocrit 38.4 % (37.5-50.1); Hemoglobin 11.2 g/dL (12.9-16.9); Mean Corpuscular HGB Conc 29.2 g/dL (31.6-35.5); Mean Corpuscular Hemoglobin 28.6 pg (28.0-33.3); Mean Corpuscular Volume 98.2 fL (83.0-100.0); Mean Platelet Volume 12.2 fL (9.4-12.4); Nucleated Red Blood Cells 4.4 /100 WBC (0); Platelet Count 216 K/mcL (140-400); Red Blood Count 3.91 M/mcL (4.19-5.50); Red Cell Distribution Width 16.6 % (11.5-14.5)
[2021-08-26 03:42] LABS: White Blood Count 47.1 K/mcL (4.3-11.1)
[2021-08-26 03:48] LABS: Calcium 7.7 mg/dL (8.6-10.3); Potassium 5.9 mEq/L (3.5-5.1)
[2021-08-26 03:49] LABS: Magnesium 2.7 mg/dL (1.6-2.6); Phosphorous 5.6 mg/dL (2.7-4.5)
[2021-08-26] MEDS: Ipratropium 1 PUFF INHALER IH SCH (03:53)
[2021-08-26 04:01] LABS: Anisocytosis 1+ (Not Present); Lymphocytes # 2.8 K/mcL (0.6-4.6); Monocytes # 0.9 K/mcL (0.0-1.3); Neutrophils # 41.5 K/mcL (1.6-8.9); Platelet Estimate Normal (Normal); Polychromasia 1+ (Not Present)
[2021-08-26 04:09] VITALS: BP 113/61; PULSE 103; O2SAT 90
[2021-08-26 04:22] VITALS: TEMP 99.4
[2021-08-26] MEDS ORDERED: 0.9 % Sodium Chloride 1,000 ML ONE (04:45)
[2021-08-26] MEDS ORDERED: *HR* Heparin 5,000 UNIT/ML VIAL ONE (04:47)
[2021-08-26] MEDS ORDERED: *HR* Amiodarone Premix 360 MG/200 ML BAG IVC ONE (05:00)
[2021-08-26] MEDS ORDERED: *HR* Amiodarone 150 MG/3 ML VIAL IVPB ONE (05:00)
[2021-08-26] MEDS ORDERED: *HR* EPINEPHrine 1 MG/10 ML SYRINGE ONE ×2 (05:00)
[2021-08-26] MEDS ORDERED: EPINEPHrine 1 MG/ML VIAL ONE (05:00)
== END 2021-08-26 05:21 | disposition expired | DRG 870 ==
LOC: SUATTDRO → 2NENU 15:26 → EMEROOARM 15:26 → 2NNU 20:36 → MERGE 20:58 → ICNU 21:44
PROVIDERS: ADMIT Internal Medicine; ATTEND Internal Medicine